=== PATIENT | female | born 2000 | race African-American/Black ===

== ENCOUNTER 2019-12-27 14:07 | Emergency (ER) | payer OTHER ==
[~2019-12-27] VITALS: Ht 162.6 cm; Wt 75.0 kg
[2019-12-27] MEDS ORDERED: BUPIVACAINE MPF 0.25% 10 ML VIAL. INFIL ONE (14:30)
[2019-12-27] MEDS ORDERED: PENI500T PO (15:09)
--- NOTE | 2019-12-27 15:10 | PHYS DOC ---
Past Medical History Past Medical History: Hypertension Additional Past Medical Histor: heart murmor Past Surgical History: Additional Past Surgical Histo: tear duct stents Smoking Status: Never Smoker Alcohol Use: None Drug Use: None General Adult EDM: Chief Complaint: DENTAL PROBLEM HPI: HPI: Patient is a 19 year old female patient of complains of dental pain. Patient reports for the past week, she has had some discomfort on her left lower molars, states she has been to the dentist, has an appointment in 5 days, has been taking some Tylenol, does not seem to help the pain for too long. States no fevers, no nausea, no vomiting. Denies additional complaints Review of Systems: Review of Systems: Constitutional: Denies fever or chills. [] Eyes: Denies change in visual acuity. [] HENT: Denies nasal congestion or sore throat. Complains of pain to left lower molars x7 days, reports she feels a bump in that area as well. States she can feel the pain up into her left ear [] Respiratory: Denies cough or shortness of breath. [] Cardiovascular: Denies chest pain or edema. [] GI: Denies abdominal pain, nausea, vomiting, bloody stools or diarrhea. [] Neurologic: Denies headache, focal weakness or sensory changes. [] Endocrine: Denies polyuria or polydipsia. [] Lymphatic: Denies swollen glands. [] Psychiatric: Denies depression or anxiety. [] Heart Score: Risk Factors: Risk Factors: DM, Current or recent (<one month) smoker, HTN, HLP, family history of CAD, obesity. Risk Scores: Score 0 - 3: 2.5% MACE over next 6 weeks - Discharge Home Score 4 - 6: 20.3% MACE over next 6 weeks - Admit for Clinical Observation Score 7 - 10: 72.7% MACE over next 6 weeks - Early Invasive Strategies Allergies: Allergies: Allergies Coded Allergies Type Severity Reaction Last Updated Verified No Known Drug Allergies 10/03/14 No Physical Exam: PE: Constitutional: Well developed, well nourished, no acute distress, non-toxic appearance. [] HENT: Normocephalic, atraumatic, bilateral external ears normal, oropharynx moist, no oral exudates, nose normal tenderness and swelling noted under tooth 1 7. No tenderness, no lesions noted to maxillary teeth. Hairline crack noted to tooth 17. Oropharynx normal otherwise [] Eyes: PERRLA, EOMI, conjunctiva normal, no discharge. [] Neck: Normal range of motion, no tenderness, supple, no stridor. [] Skin: Warm, dry, no erythema, no rash. [] Extremities: No tenderness, no cyanosis, no clubbing, ROM intact, no edema. [] Neurologic: Alert and oriented X 3, normal motor function, normal sensory function, no focal deficits noted. [] Psychologic: Affect normal, judgement normal, mood normal. [] EKG: EKG: [] Radiology/Procedures: Radiology/Procedures: [] Course & Med Decision Making: Course & Med Decision Making Pertinent Labs and Imaging studies reviewed. (See chart for details) [] Given discomfort, with noted swelling and likely carry, will provide dental block, recommend patient continue to take NSAIDs for discomfort. Patient does have follow-up with dentist scheduled on 12/30, has appointment at this time, will provide short course of antibiotics and recommend continued use of NSAIDs in the meantime Dental block performed using 4 ml 0.25% bupivicaine infiltrated into left maxillary joint space. Well tolerated by patient, with noted relief. Dragon Disclaimer: Dragon Disclaimer: This electronic medical record was generated, in whole or in part, using a voice recognition dictation system. Departure Departure Impression: Primary Impression: Dental caries Disposition: 01 HOME, SELF-CARE Referrals: NO PCP (PCP) Patient Instructions: Dental Caries Additional Instructions: As we discussed, make sure you are staying ahead with the tylenol and ibuprofen for your discomfort. YOu can take up to 1000 mg ibuprofen every 6 hours for your pain, AND you may take 600 mg ibuprofen every 6 hours for discomfort. Make sure you keep your appointment with your dentist next week. Take the antibiotic as prescribed, for the entire duration it is prescribed. Try to avoid chewing on foods along that side of your mouth to limit additional discomfort Scripts Penicillin V Potassium (PENICILLIN V POTASSIUM) 500 Mg Tablet 1 TAB PO TID, #30 TAB Prov: LESTER MOSS APRN 12/27/19 Justicifation of Admission Dx: Justifications for Admission: Justification of Admission Dx: N/A LESTER MOSS APRN Dec 27, 2019 15:10
[2019-12-27 15:15] VITALS: BP 135/67
== END 2019-12-27 15:15 | disposition home or self-care (01) ==
LOC: ER 14:07
DX: K02.9 Dental caries, unspecified (principal); K08.89 Other specified disorders of teeth and supporting structures; R60.0 Localized edema; I10 Essential (primary) hypertension; Z98.890 Other specified postprocedural states
CPT/HCPCS: 64400; 99284; J3490

== ENCOUNTER 2020-01-04 16:34 | Emergency (ER) | payer OTHER ==
[~2020-01-04] VITALS: Ht 162.6 cm; Wt 75.0 kg
[~2020-01-04 16:34] MED LIST: PENI500T PO
[2020-01-04] MEDS ORDERED: ACET-704 PO (17:21)
[2020-01-04] MEDS ORDERED: AMOX500T PO (17:21)
--- NOTE | 2020-01-04 17:22 | PHYS DOC ---
Past Medical History Past Medical History: Hypertension Additional Past Medical Histor: heart murmor Past Surgical History: Additional Past Surgical Histo: tear duct stents Smoking Status: Never Smoker Alcohol Use: None Drug Use: None General Adult EDM: Chief Complaint: DENTAL PROBLEM HPI: HPI: Patient is a 19 year old female who presents to the ED today complaining of 10 out of 10 left upper and lower gum dental pain that began 1 week ago. Patient reports being seen in the ED 1 week ago discharged with penicillin a week ago. She states the medicines are not helping with her pain. She states she is not able to see any dentist because she is on Medicaid and she is above 18 years old. Denies any fever or trismus. Patient denies anything specifically exa cerbating or relieving her pain. She describes the pain as throbbing and constant. Review of Systems: Review of Systems: Constitutional: Denies fever or chills. [] HENT: Reports dental pain. Denies nasal congestion or sore throat. [] Musculoskeletal: Denies back pain or joint pain. [] Integument: Denies rash. [] Neurologic: Denies headache, focal weakness or sensory changes. [] Psychiatric: Denies depression or anxiety. [] Heart Score: Risk Factors: Risk Factors: DM, Current or recent (<one month) smoker, HTN, HLP, family history of CAD, obesity. Risk Scores: Score 0 - 3: 2.5% MACE over next 6 weeks - Discharge Home Score 4 - 6: 20.3% MACE over next 6 weeks - Admit for Clinical Observation Score 7 - 10: 72.7% MACE over next 6 weeks - Early Invasive Strategies Allergies: Allergies: Allergies Coded Allergies Type Severity Reaction Last Updated Verified No Known Drug Allergies 10/03/14 No Physical Exam: PE: Constitutional: Well developed, well nourished, no acute distress, non-toxic appearance. [] HENT: Normocephalic, atraumatic, bilateral external ears normal, oropharynx moist, no oral exudates, nose normal. [] No significant dental deformity/infection noted Abdomen: Bowel sounds normal, soft, no tenderness, no masses, no pulsatile masses. [] Skin: Warm, dry, no erythema, no rash. [] Back: No tenderness, no CVA tenderness. [] Extremities: No tenderness, no cyanosis, no clubbing, ROM intact, no edema. [] Neurologic: Alert and oriented X 3, normal motor function, normal sensory function, no focal deficits noted. [] Psychologic: Affect normal, judgement normal, mood normal. [] Current Patient Data: Vital Signs: Vital Signs Date Time Temp Pulse Resp B/P (MAP) Pulse Ox O2 Delivery O2 Flow Rate FiO2 01/04/20 16:40 98.9 108 22 147/90 (109) 96 Room Air 98.9 EKG: EKG: [] Radiology/Procedures: Radiology/Procedures: [] Course & Med Decision Making: Course & Med Decision Making Pertinent Labs and Imaging studies reviewed. (See chart for details) This is a 19-year-old female patient presenting to the ED today complaining of dental pain for 1 week and asking something for pain. She was seen in the ED a week ago and was discharged on penicillin and ibuprofen. She states they are not helping. Discussed with patient the importance of following up with the dentist. Dental clinics provided. D/c on amoxicillin and tylenol #3 10 tablets. Ru Disclaimer: Ru Disclaimer: This electronic medical record was generated, in whole or in part, using a voice recognition dictation system. Departure Departure Impression: Primary Impression: Dentalgia Disposition: 01 HOME, SELF-CARE Condition: STABLE Referrals: NO PCP (PCP) Follow-up with a dentist from the list provided Patient Instructions: Dental Pain Additional Instructions: Please take the prescribed antibiotics until completed. Stop taking penicillin. Continue taking ibuprofen as needed for pain. You can take Tylenol No. 3 as needed for pain. Follow-up with a dentist as soon as possible Scripts Acetaminophen With Codeine (TYLENOL WITH CODEINE #3 TABLET) 1 Each Tablet 1 TAB PO PRN Q6HRS PRN for PAIN, #10 TAB Prov: CULLEN ECKERT APRN 01/04/20 Amoxicillin (AMOXICILLIN) 500 Mg Tablet 1 TAB PO BID, #14 TAB Prov: CULLEN ECKERT APRN 01/04/20 Justicifation of Admission Dx: Justifications for Admission: Justification of Admission Dx: N/A CULLEN ECKERT APRN Jan 04, 2020 17:21
[2020-01-04 17:40] VITALS: BP 145/81
== END 2020-01-04 17:40 | disposition home or self-care (01) ==
LOC: ER 16:34
DX: K08.89 Other specified disorders of teeth and supporting structures (principal); I10 Essential (primary) hypertension
CPT/HCPCS: 99283